=== PATIENT | female | born 1995 | race Hispanic/Latino ===

== ENCOUNTER 2018-02-28 15:35 | Emergency (ER) | payer SELFPAY ==
--- NOTE | 2018-02-28 18:36 | Emergency Department Report ---
HPI - General Chief Complaint: Earache Time Seen by Provider: 02/28/18 18:01 - HPI HPI: Patient is a 22-year-old female with no prior medical history presents to ED complaining of continued ear pain greater than 1 week. Patient states she was seen last Wednesday [facility] and was given some antibiotics and pain medication. Patient's states that she has been taking the antibiotics as prescribed and ear is getting worse and not resolved. She admits to runny nose She denies fever/chills/nausea vomiting throat pain, cough ED Past Medical Hx - Past Medical History Previous Medical History?: No - Surgical History Past Surgical History?: No - Social History Smoking Status: Current Every Day Smoker Substance Use Type: None - Medications Home Medications: Home Medications Medication Instructions Recorded Confirmed Last Taken Type Ciprofloxacin HCl [Ciprofloxacin 750 mg PO BID #20 tablet 02/28/18 Unknown Rx TAB] Ibuprofen [Motrin] 800 mg PO Q8HR #30 tablet 02/28/18 Unknown Rx Neomycin/Polymyxin B/Hydrocort 1 - 2 drops OT TID #10 ml 02/28/18 Unknown Rx [Lvthkdvc-Gtwcljfqc-Fy Ear Susp] ED Review of Systems ROS: Stated complaint: EAR PAIN Other details as noted in HPI Constitutional: denies: chills, fever Eyes: denies: eye pain, eye discharge, vision change ENT: denies: ear pain, throat pain Respiratory: denies: cough, shortness of breath, wheezing Cardiovascular: denies: chest pain, palpitations Endocrine: no symptoms reported Gastrointestinal: denies: abdominal pain, nausea, diarrhea Genitourinary: denies: urgency, dysuria, discharge Musculoskeletal: denies: back pain, joint swelling, arthralgia Skin: denies: rash, lesions Neurological: denies: headache, weakness, paresthesias Psychiatric: denies: anxiety, depression Hematological/Lymphatic: denies: easy bleeding, easy bruising Physical Exam - Physical Exam Vital Signs: Vital Signs 02/28/18 15:44 Temperature 99.4 F Pulse Rate 127 H Respiratory 18 Rate Blood Pressure 123/73 O2 Sat by Pulse 96 Oximetry Physical Exam: GENERAL: Alert and oriented x3, no apparent distress, Normal Gait, atraumatic. HEAD: Head is normocephalic and a-traumatic. EYES: Extra ocular muscles are intact. EARS: symetrical, atraumatic, auricular tenderness, no mastoid tenderness, ear canal clear and , tympanic membrance non inflamed but post field behind both ears. gross auditory nml bilaterally. NOSE: Nose symetrical, Nontender,Nares appeared normal. MOUTH:Mouth is well hydrated and without lesions. Tonsils nonerythematous or swollen, Uvula midline, Tongue not elevated. Mucous membranes are moist. Posterior pharynx clear, no exudate or lesions. Patent airways. NECK: Supple. Non edematous, No carotid bruits. No lymphadenopathy or thyromegaly. No C-spine tenderness LUNGS: Symetrical with respiration, No wheezing, no rales or crackles, CTAB. HEART: S1, S2 present, regular rate and rhythm without murmur, no rubs, no gallops. Non tender to palpation SKIN: Warm and dry, No lesions, No ulceration or induration present. ED Course Vital Signs 02/28/18 15:44 Temperature 99.4 F Pulse Rate 127 H Respiratory 18 Rate Blood Pressure 123/73 O2 Sat by Pulse 96 Oximetry ED Medical Decision Making - Medical Decision Making 22-year-old female presents with persistent otitis/sinusitis ED course: Patient received pain relief in the ED I discussed the patient she will be going home on a trial of ciprofloxacin as well as some eardrops I discussed with her to follow up with primary care physician referrals given Vital signs are normalized patient is in no acute distress or respiratory distress. - Differential Diagnosis 1 mastoiditis 2 otitis externa 3 otitis media 4.sinusitis Critical care attestation.: If time is entered above; I have spent that time in minutes in the direct care of this critically ill patient, excluding procedure time. ED Disposition Clinical Impression: Sinusitis chronic, frontal, Resistance to other single specified antibiotic, Otitis Disposition: DC-01 TO HOME OR SELFCARE Is pt being admited?: No Does the pt Need Aspirin: No Condition: Stable Instructions: Otitis Media (ED), Acute Bacterial Rhinosinusitis (ED), Barotrauma (ED) Additional Instructions: Make sure to follow up with the primary care physician as discussed. Take all your medications as you've been prescribed. If you have any worsening symptoms or develop new symptoms please return to ED immediately. Prescriptions: Ciprofloxacin HCl [Ciprofloxacin TAB] 750 mg PO BID #20 tablet Ibuprofen [Motrin] 800 mg PO Q8HR #30 tablet Neomycin/Polymyxin B/Hydrocort [Wjljrtle-Roczzovvf-Ly Ear Susp] 1 - 2 drops OT TID #10 ml Referrals: [facility] [Outside] - 3-5 Days [facility] [Outside] - 3-5 Days Forms: Work/School Release Form(ED) Time of Disposition: 18:55
[2018-02-28] MEDS ORDERED: DELTASONE PO ONE (18:54)
[2018-02-28] MEDS ORDERED: NORCO 5/325 PO ONE (18:54)
[2018-02-28 19:40] VITALS: BP 107/75
== END 2018-02-28 20:00 | disposition home or self-care (01) ==
LOC: ED 15:35
DX: J32.9 Chronic sinusitis, unspecified (principal); F17.200 Nicotine dependence, unspecified, uncomplicated; H66.92 Otitis media, unspecified, left ear; Z16.29 Resistance to other single specified antibiotic
CPT/HCPCS: 93005; 93010; 99282; J7512

== ENCOUNTER 2019-07-08 00:46 | Emergency (ER) | payer SELFPAY ==
--- NOTE | 2019-07-08 02:09 | Emergency Department Report ---
ED ENT HPI - General Chief complaint: Sore Throat Stated complaint: THROAT PAIN Time Seen by Provider: 07/08/19 01:33 Source: patient Mode of arrival: Ambulatory Limitations: No Limitations - History of Present Illness Initial comments: This is a 24-year-old female that presents to the emergency room with sore throat for 1-1/2 weeks. Patient states she used a vapor constantly throughout the day and thinks it is probably affecting her throat. Patient reports pain is worse when she eats or swallowing. Denies taking anything for symptomatic relief. Patient denies vocal changes, drooling, fever, and chills. MD complaint: sore throat Onset/Timin -: week(s) Location: throat Severity: severe Severity scale (0 -10): 8 Quality: aching Consistency: constant Improves with: none Worsens with: swallowing, eating Associated Symptoms: pain with swallowing, sore throat. denies: fever, cough, gum swelling, toothache, tinnitus, hearing loss, discharge from ear, rhinorrhea - Related Data Previous Rx's Medication Instructions Recorded Last Taken Type Ciprofloxacin HCl [Ciprofloxacin 750 mg PO BID #20 tablet 02/28/18 Unknown Rx TAB] Ibuprofen [Motrin] 800 mg PO Q8HR #30 tablet 02/28/18 Unknown Rx Neomycin/Polymyxin B/Hydrocort 1 - 2 drops OT TID #10 ml 02/28/18 Unknown Rx [Movpwdyf-Weowrqius-Bj Ear Susp] Sulfamethoxazole/Trimethoprim 1 each PO BID #6 tablet 03/21/18 Unknown Rx [Bactrim DS TAB] Nystas/Diphen/Xyl Visc/Mylanta 15 ml MM Q4H PRN #120 ml 07/08/19 Unknown Rx [Magic Mouthwash] Allergies Allergy/AdvReac Type Severity Reaction Status Date / Time No Known Allergies Allergy Verified 07/08/19 00:48 ED Dental HPI - General Chief complaint: Sore Throat Stated complaint: THROAT PAIN Time Seen by Provider: 07/08/19 01:33 Source: patient Mode of arrival: Ambulatory Limitations: No Limitations - Related Data Previous Rx's Medication Instructions Recorded Last Taken Type Ciprofloxacin HCl [Ciprofloxacin 750 mg PO BID #20 tablet 02/28/18 Unknown Rx TAB] Ibuprofen [Motrin] 800 mg PO Q8HR #30 tablet 02/28/18 Unknown Rx Neomycin/Polymyxin B/Hydrocort 1 - 2 drops OT TID #10 ml 02/28/18 Unknown Rx [Sjffkmqo-Mfqeawcyc-Sc Ear Susp] Sulfamethoxazole/Trimethoprim 1 each PO BID #6 tablet 03/21/18 Unknown Rx [Bactrim DS TAB] Nystas/Diphen/Xyl Visc/Mylanta 15 ml MM Q4H PRN #120 ml 07/08/19 Unknown Rx [Magic Mouthwash] Allergies Allergy/AdvReac Type Severity Reaction Status Date / Time No Known Allergies Allergy Verified 07/08/19 00:48 ED Review of Systems ROS: Stated complaint: THROAT PAIN Other details as noted in HPI Constitutional: denies: chills, fever ENT: throat pain. denies: ear pain, dental pain, hearing loss, epistaxis, congestion Respiratory: denies: cough, shortness of breath, wheezing Cardiovascular: denies: chest pain, palpitations Gastrointestinal: denies: abdominal pain, nausea, diarrhea Musculoskeletal: denies: back pain, joint swelling, arthralgia Skin: denies: rash, lesions Neurological: denies: headache, weakness, paresthesias Psychiatric: denies: anxiety, depression ED Past Medical Hx - Past Medical History Previous Medical History?: Yes Additional medical history: Ichtosis - Surgical History Past Surgical History?: No - Social History Smoking Status: Current Every Day Smoker Substance Use Type: None - Medications Home Medications: Home Medications Medication Instructions Recorded Confirmed Last Taken Type Ciprofloxacin HCl [Ciprofloxacin 750 mg PO BID #20 tablet 02/28/18 Unknown Rx TAB] Ibuprofen [Motrin] 800 mg PO Q8HR #30 tablet 02/28/18 Unknown Rx Neomycin/Polymyxin B/Hydrocort 1 - 2 drops OT TID #10 ml 02/28/18 Unknown Rx [Kncermss-Ydczavnvo-Ro Ear Susp] Sulfamethoxazole/Trimethoprim 1 each PO BID #6 tablet 03/21/18 Unknown Rx [Bactrim DS TAB] Nystas/Diphen/Xyl Visc/Mylanta 15 ml MM Q4H PRN #120 ml 07/08/19 Unknown Rx [Magic Mouthwash] ED Physical Exam - General Limitations: No Limitations General appearance: alert, in no apparent distress - ENT ENT exam: Present: mucous membranes moist, TM's normal bilaterally, normal external ear exam. Absent: normal orophraynx (Erythematous posterior pharynx, uvula midline no swelling, no exudate), mucous membranes dry - Neck Neck exam: Present: normal inspection - Respiratory Respiratory exam: Present: normal lung sounds bilaterally. Absent: respiratory distress - Cardiovascular Cardiovascular Exam: Present: regular rate, normal rhythm. Absent: systolic murmur, diastolic murmur, rubs, gallop - GI/Abdominal GI/Abdominal exam: Present: soft, normal bowel sounds - Extremities Exam Extremities exam: Present: normal inspection - Neurological Exam Neurological exam: Present: alert, oriented X3, normal gait - Psychiatric Psychiatric exam: Present: normal affect, normal mood - Skin Skin exam: Present: warm, dry, intact, normal color. Absent: rash ED Course Vital Signs 07/08/19 00:54 Temperature 99.0 F Pulse Rate 106 H Respiratory 15 Rate Blood Pressure 114/71 O2 Sat by Pulse 97 Oximetry Vital Signs 07/08/19 07/08/19 00:54 03:24 Temperature 99.0 F 98.1 F Pulse Rate 106 H 95 H Respiratory 15 18 Rate Blood Pressure 114/71 Blood Pressure 111/59 [Left] O2 Sat by Pulse 97 98 Oximetry ED Medical Decision Making - Radiology Data Radiology results: report reviewed Soft tissue neck, 2 views INDICATION: Sore throat FINDINGS: The prevertebral soft tissues are normal. There is no abscess or foreign body. Epiglottis is normal. No airway abnormality. No degenerative change of the cervical spine is seen. No abnormality demonstrated. - Medical Decision Making This is a 24-year-old female that presents for 1 week. Vitals are stable and patient in no acute distress. Work-up: X-ray of the neck soft tissues. X-ray without acute findings. No history of immunocompromise. Patient is nontoxic appearing. No trismus or airway compromise on exam. Able to tolerate p.o. Given history and exam there is a low suspicion for [employer], epiglottitis, bacterial tracheitis, acute HIV. Given bicillin I-A 1.2 mL IM once in ER. Start Magic mouthwash. Take Tylenol or ibuprofen for pain. Discussed plan with patient and he agreed with plan to treat outpatient. Discharged home with PCP follow-up. Given strict return instructions. Critical care attestation.: If time is entered above; I have spent that time in minutes in the direct care of this critically ill patient, excluding procedure time. ED Disposition Clinical Impression: Acute sore throat Pharyngitis Qualifiers: Pharyngitis/tonsillitis etiology: unspecified etiology Qualified Code(s): J02.9 - Acute pharyngitis, unspecified Disposition: - TO HOME OR SELFCARE Is pt being admited?: No Condition: Stable Instructions: Pharyngitis (ED) Additional Instructions: Expect symptoms to improve within 3 or 4 days. There is no need for bed rest or isolation. Use Tylenol or Ibuprofen for symptoms of sore throat, headache, and fever. Follow up with Primary Care Provider in 48-72 hours. Prescriptions: Nystas/Diphen/Xyl Visc/Mylanta [Magic Mouthwash] 15 ml MM Q4H PRN #120 ml PRN Reason: Sore Throat Referrals: [facility] [Outside] - 3-5 Days [facility] [Outside] - 3-5 Days [facility] [Outside] - 3-5 Days KEITH CID MD [Staff Physician] - 3-5 Days Forms: Work/School Release Form(ED) Time of Disposition: 03:27
--- NOTE | 2019-07-08 03:14 | XRay Report ---
Soft tissue neck, 2 views INDICATION: Sore throat FINDINGS: The prevertebral soft tissues are normal. There is no abscess or foreign body. Epiglottis i s normal. No airway abnormality. No degenerative change of the cervical spine is seen. No abnormality demonstrated. Signer Name: Dandre Saleh MD Signed: 07/08/2019 3:09 AM Workstation Name: [id number]
[2019-07-08] MEDS ORDERED: PENICILLIN G BENZATHINE 1.2 MILLION UNIT/2 ML INJ IM ONE (03:17)
[2019-07-08] MEDS ORDERED: MAGIC MOUTHWASH 30ML PO ONE (03:26)
[2019-07-08 03:27] VITALS: BP 111/59
== END 2019-07-08 03:39 | disposition home or self-care (01) ==
LOC: ED 00:46
DX: J06.9 Acute upper respiratory infection, unspecified (principal); J02.9 Acute pharyngitis, unspecified; F17.200 Nicotine dependence, unspecified, uncomplicated; Z79.899 Other long term (current) drug therapy
CPT/HCPCS: 70360; 96372; 99283; J0561

== ENCOUNTER 2019-12-10 13:10 | Emergency (ER) | payer SELFPAY | END 2019-12-10 13:40 | disposition left against medical advice (07) | LOC: ED 13:10 | DX: R10.9 Unspecified abdominal pain (principal); Z53.21 Procedure and treatment not carried out due to patient leaving prior to being seen by health care provider ==

== ENCOUNTER 2019-12-10 16:09 | Emergency (ER) | payer SELFPAY ==
[2019-12-10 16:37] VITALS: BP 130/76
--- NOTE | 2019-12-10 17:04 | Emergency Department Report ---
Blank Doc - Documentation Documentation: 24-year-old female that presents with abdominal pain with nausea, vomiting. This initial assessment/diagnostic orders/clinical plan/treatment(s) is/are subject to change based on patient's health status, clinical progression and re- assessment by fellow clinical providers in the ED. Further treatment and workup at subsequent clinical providers discretion. Patient/guardians urged not to elope from the ED as their condition may be serious if not clinically assessed and managed. Initial orders include: 1- Patient sent to [facility] for further evaluation and treatment 2- labs 3- UA
[2019-12-10 17:25] LABS: Hematocrit 36.2 % (30.3-42.9); Hemoglobin 12.3 gm/dl (10.1-14.3); Mean Corpuscular HGB Conc 34 % (30-34); Mean Corpuscular Volume 86 fl (79-97); Platelet Count 329 K/mm3 (140-440); Red Blood Count 4.19 M/mm3 (3.65-5.03)
[2019-12-10 17:43] LABS: Alanine Aminotransferase 15 units/L (7-56); Albumin 5.1 g/dL (3.9-5); BUN/Creatinine Ratio 19; Blood Urea Nitrogen 15 mg/dL (7-17); Calcium 10.1 mg/dL (8.4-10.2); Hemolysis Index 15
[2019-12-10 18:06] LABS: Basophils % (Manual) 0 % (0.0-1.8); Eosinophils % (Manual) 0 % (0.0-4.3); Platelet Estimate Consistent w Auto; RBC Morphology Normal; Total Cells Counted 100
[2019-12-10 18:57] LABS: HCG Qualitative,Urine Negative (Negative)
[2019-12-10 19:01] LABS: Bilirubin,Urine NEG (Negative); Blood,Urine NEG (Negative); Color,Urine Yellow (Yellow); Mucus,Urine 3+ /HPF
== END 2019-12-10 20:05 | disposition left against medical advice (07) ==
LOC: ED 16:09
DX: R10.9 Unspecified abdominal pain (principal); Z53.21 Procedure and treatment not carried out due to patient leaving prior to being seen by health care provider
CPT/HCPCS: 36415; 80053; 81001; 81025; 83690; 85007; 85025; 87086